=== PATIENT | male | born 1945 | race Caucasian/White ===

== ENCOUNTER 2023-04-13 11:34 | Emergency (ER) | payer MEDICARE ==
[~2023-04-13] VITALS: Ht 167.6 cm; Wt 77.1 kg
[2023-04-13 11:38] VITALS: TEMP 97.9
--- NOTE | 2023-04-13 11:38 | NUR ---
BIB [facility] FROM [facility]C/O PALPITATION BUT EMS UNABLE TO GIVE ANY OTHER INFO. PT ATTACHED TO MONITOR, VITALS ARE WITHIN NORMAL LIMITS. PT STATED HE'S BEEN HAVING ON/OFF PALPITATIONS FOR THE PAST 24 HOURS ABOUT EVERY 30MINUTES. PT DENIES ANY CHEST PAIN. WARM BLANKET PROVIDED FOR COMFORT, PT PLACED IN HOSPITAL GOWN. AWAITING MD FRANK.
--- NOTE | 2023-04-13 11:40 | NUR ---
IV ESTABLISHED R AC 18G. LABS DRAWN AND COLLECTED AT BEDSIDE.
[2023-04-13 12:23] LABS: BASOPHILS % (AUTO) 0.3 % (0.0-2.0); EOSINOPHILS % (AUTO) 4.7 % (0.0-6.0); HEMATOCRIT 44 % (39-51); HEMOGLOBIN 14.5 g/dL (13.5-17.5); LYMPHOCYTES # (AUTO) 2.4 K/uL (0.8-4.8); LYMPHOCYTES % (AUTO) 29.5 % (20.0-44.0); MEAN CORPUSCULAR HGB CONC 33 g/dl (31.0-36.0); MEAN CORPUSCULAR VOLUME 84 fL (80-96); MONOCYTES # (AUTO) 0.5 K/uL (0.1-1.30); MONOCYTES % (AUTO) 6.1 % (2.0-12.0); NEUTROPHILS # (AUTO) 4.7 K/uL (1.8-8.9); NEUTROPHILS % (AUTO) 59.4 % (43.0-81.0); PLATELET COUNT (AUTO) 196 K/uL (150-450); RED BLOOD CELL COUNT(AUTO) 5.25 MIL/uL (4.5-6.0)
[2023-04-13 12:30] LABS: CALCIUM, SERUM 9.3 mg/dL (8.5-10.1); CARBON DIOXIDE 28 mmol/L (21-32); CHLORIDE 106 mmol/L (98-107); CREATININE 0.8 mg/dL (0.6-1.3); GLUCOSE 89 mg/dL (74-106); POTASSIUM 3.8 mmol/L (3.5-5.1); SODIUM SERUM 143 mmol/L (136-145); UREA NITROGEN, BLOOD 17 mg/dL (7-18)
[2023-04-13 13:14] VITALS: BP 136/71; O2SAT 98
--- NOTE | 2023-04-13 13:14 | NUR ---
IV removed. Catheter intact and site benign. Pressure and 4x4 applied to site. No bleeding noted.
--- NOTE | 2023-04-13 13:14 | NUR ---
Patient discharged to home in stable condition. Written and verbal after care instructions given. Patient verbalizes understanding of instruction.
== END 2023-04-13 13:24 | disposition home or self-care (01) ==
LOC: ER 11:38
DX: R00.2 Palpitations (principal); G20 Parkinson's disease
CPT/HCPCS: 36415; 71045-TC; 80048-TC; 84484-TC; 85025-TC